=== PATIENT | female | born 1990 | race Caucasian/White ===

== ENCOUNTER 2017-02-08 06:41 | Emergency (ER) | payer OTHER ==
[~2017-02-08] VITALS: Ht 172.7 cm; Wt 90.9 kg
[2017-02-08] MEDS ORDERED: ALBU8HFA IH (06:44)
[2017-02-08] MEDS ORDERED: IBUPROFEN 600 MG TABLET PO ONE (07:45)
[2017-02-08 08:14] VITALS: BP 134/79
== END 2017-02-08 08:20 | disposition home or self-care (01) ==
LOC: EMS 06:42
DX: G56.01 Carpal tunnel syndrome, right upper limb (principal); F17.210 Nicotine dependence, cigarettes, uncomplicated; J45.909 Unspecified asthma, uncomplicated; F12.10 Cannabis abuse, uncomplicated
CPT/HCPCS: 99283; 99406

== ENCOUNTER 2019-07-23 07:41 | Emergency (ER) | payer SELFPAY ==
[~2019-07-23] VITALS: Ht 162.6 cm; Wt 118.2 kg
[~2019-07-23 07:41] MED LIST: ALBU8HFA IH
[2019-07-23] MEDS ORDERED: CeFAZolin 1 GM/DEXTROSE 50 ML IV ONE (09:30)
[2019-07-23] MEDS ORDERED: KETOROLAC TROMETHAMINE 30 MG/ML VIAL IVP ONE (10:00)
[2019-07-23] MEDS ORDERED: ACETAMINOPHEN 500 MG TABLET PO ONE (10:00)
[2019-07-23 10:05] LABS: BASOPHILS % (AUTO) 0.3 % (0.0-2.0); EOSINOPHILS % (AUTO) 0.5 % (1.0-6.0); HEMATOCRIT 38.8 % (36-46); HEMOGLOBIN 13.2 g/dL (12.0-16.0); MEAN CORPUSCULAR HGB CONC 34.1 G/dL (31.0-37.0); MEAN CORPUSCULAR VOLUME 82 fL (80-100); MONOCYTES # (AUTO) 1.3 K/uL (0.1-1.0); NEUTROPHILS # (AUTO) 5.7 K/uL (1.8-7.7); NEUTROPHILS % (AUTO) 63.2 % (40.0-70.0); PLATELET COUNT (AUTO) 155 K/uL (150-450); RED BLOOD CELL COUNT(AUTO) 4.73 MIL/uL (4.00-5.20); RED CELL DISTRIBUTION WIDTH 16.7 % (11.5-14.5)
[2019-07-23 10:22] LABS: INFLUENZA TYPE A NEGATIVE FOR TYPE A (NEGATIVE)
[2019-07-23 10:23] LABS: LACTIC ACID 1.1 mmol/L (0.4-2.0)
[2019-07-23 10:23] LABS: INFLUENZA TYPE B NEGATIVE FOR TYPE B (NEGATIVE)
[2019-07-23 10:32] LABS: ALANINE AMINOTRANSFERASE 68 U/L (12-78); ALBUMIN 3.7 g/dL (3.4-5.0); ALKALINE PHOSPHATASE 85 U/L (46-116); ANION GAP 11 mmol/L (8-16); ASPARTATE AMINOTRANSFERASE 28 U/L (15-37); BILIRUBIN,TOTAL 0.4 mg/dL (0.1-1.0); CALCIUM, TOTAL 8.6 mg/dL (8.8-10.5); CARBON DIOXIDE 25 mmol/L (22-29); CHLORIDE 99 mmol/L (98-107); CREATININE 0.64 mg/dL (0.60-1.30); GLOMERULAR FILTR. RATE CALC > 60 mL/min (>60); GLUCOSE,RANDOM 141 mg/dL (70-110); POTASSIUM 3.4 mmol/L (3.5-5.1); SODIUM SERUM 135 mmol/L (136-145); TOTAL PROTEIN, SERUM 8.1 g/dL (6.4-8.2)
[2019-07-23 10:46] LABS: UREA NITROGEN, BLOOD 14 mg/dL (7-18)
[2019-07-23 11:00] VITALS: BP 131/96
[2019-07-23] MEDS ORDERED: SULFAMETHOX/TRIMETH DS 800-160 MG/TABLET PO ONE (11:00)
== END 2019-07-23 11:21 | disposition home or self-care (01) ==
LOC: EMS 07:42
DX: L03.116 Cellulitis of left lower limb (principal); Z79.899 Other long term (current) drug therapy
CPT/HCPCS: 36415; 71045; 73090; 80053; 83605; 85025; 87040; 87804; 96365; 96375; 99284; J0690; J1885

== ENCOUNTER 2024-11-20 11:06 | Emergency (ER) | payer MEDICAID ==
[~2024-11-20] VITALS: Ht 170.2 cm; Wt 159.0 kg
[~2024-11-20 11:06] MED LIST changes: +ALBU18HF12 IH; -ALBU8HFA IH
[2024-11-20 11:46] VITALS: BP 142/91; PULSE 80; RESP 18; TEMP 97.5; O2SAT 99
[2024-11-20 12:00] LABS: GLUCOMETER DEV NAME(LOC) ERT.6; GLUCOSE,POINT OF CARE 170 MG/DL (70-110)
[2024-11-20] MEDS ORDERED: METF-444 PO (12:05)
[2024-11-20] MEDS ORDERED: TRI2515C TP (12:05)
[2024-11-20] MEDS ORDERED: SEMA0.258 SQ (12:05)
[2024-11-20] MEDS ORDERED: ERGO500054 PO (12:05)
[2024-11-20] MEDS ORDERED: CEPH-558 PO (12:45)
[2024-11-20] MEDS: LIDOCAINE 2% 6 ML JELLY TP ONE (12:46)
== END 2024-11-20 13:05 | disposition home or self-care (01) ==
LOC: EMS 11:06
DX: S70.362A Insect bite (nonvenomous), left thigh, initial encounter (principal); L03.116 Cellulitis of left lower limb; E11.9 Type 2 diabetes mellitus without complications; J45.909 Unspecified asthma, uncomplicated; F12.90 Cannabis use, unspecified, uncomplicated; F17.210 Nicotine dependence, cigarettes, uncomplicated; Z79.85 Long-term (current) use of injectable non-insulin antidiabetic drugs; W57.XXXA Bitten or stung by nonvenomous insect and other nonvenomous arthropods, initial encounter; Y93.89 Activity, other specified; Y92.89 Other specified places as the place of occurrence of the external cause; Y99.8 Other external cause status
CPT/HCPCS: 82962; 99283